=== PATIENT | female | born 1965 | race Two or more races ===

== ENCOUNTER 2017-07-01 05:33 | Emergency (ER) | payer MEDICAID ==
[~2017-07-01] VITALS: Ht 160 cm; Wt 72.6 kg
[~2017-07-01 05:33] MED LIST: ASPI-264 PO
[2017-07-01] MEDS ORDERED: methylPREDNISolone SOD SUCC 125 MG/2 ML VL IV ONE (06:00)
[2017-07-01] MEDS ORDERED: diphenhdrAMINE HCL 50 MG/1 ML VL IV ONE (06:00)
[2017-07-01] MEDS ORDERED: FAMOTIDINE (10MG/ML) 2ML VL IV ONE (06:00)
[2017-07-01] MEDS ORDERED: SODIUM CHLORIDE 0.9% 1,000 ML IV ONE (07:24)
[2017-07-01 07:38] LABS: Urine RBC None Seen /hpf (0 - 4)
[2017-07-01 07:48] LABS: Urine Bilirubin Negative (Negative); Urine Blood Negative /uL (Negative); Urine Color Yellow (Yellow); Urine Glucose Normal (Normal); Urine Ketone Negative (Negative); Urine Nitrite Negative (Negative); Urine Squamous Epithelial Cell FEW /hpf (<5); Urine Urobilinogen Normal (Negative)
[2017-07-01 08:07] LABS: Basophils # (auto) 0 uL; Basophils % (auto) 0.5 % (0.0-2.0); Eosinophils # (auto) 0.1 uL; Eosinophils % (auto) 1.5 % (0.0-7.0); Hematocrit 39.2 % (36.0-46.0); Hemoglobin 13.3 g/dL (12.2-16.2); Lymphocytes # (auto) 1.2 uL; Lymphocytes % (auto) 15.1 % (10.0-50.0); Mean Corpuscular Hemoglobin 29.5 pg (28.0-32.0); Mean Corpuscular Hgb Conc. 33.9 g/dL (32.0-36.0); Mean Corpuscular Volume 87.2 fL (80.0-100.0); Mean Platelet Volume 7.4 fL (6.9-10.8); Monocytes # (auto) 0.2 uL; Neutrophils # (auto) 6.3 uL; Neutrophils % (auto) 79.9 % (37.0-80.0); Nucleated Red Blood Cells % 0.1 %; Platelet Count (auto) 177 10^3/uL (140-450); Red Cell Distribution Width 13.6 % (11.8-14.3); White Blood Cell 7.8 10^3/uL (4.4-10.8)
[2017-07-01 08:36] LABS: Albumin 3.7 g/dL (3.4-5.0); BUN/Creatinine Ratio 17.2; Bilirubin, Total 0.5 mg/dL (0.2-1.0); Calcium 8.6 mg/dL (8.5-10.1); Magnesium 2.1 mg/dL (1.6-2.6); Potassium 3.5 mmol/L (3.5-5.1); Total Protein 7.8 g/dL (6.4-8.2)
[2017-07-01 09:20] VITALS: BP 126/73
== END 2017-07-01 09:56 | disposition home or self-care (01) ==
LOC: EDBD 05:33 → ER 05:39
DX: L50.0 Allergic urticaria (principal); I10 Essential (primary) hypertension; E11.9 Type 2 diabetes mellitus without complications; F17.210 Nicotine dependence, cigarettes, uncomplicated; Z79.82 Long term (current) use of aspirin; E78.5 Hyperlipidemia, unspecified; Z98.51 Tubal ligation status
CPT/HCPCS: 36415; 80053; 81001; 83735; 84443; 85025; 96361; 96374; 96375; 99284; J1200; J2930; J3490; J7030

== ENCOUNTER 2018-07-06 11:53 | Emergency (ER) | payer MEDICAID ==
[~2018-07-06] VITALS: Ht 160 cm; Wt 81.6 kg
[2018-07-06 12:04] VITALS: BP 166/67
== END 2018-07-06 16:55 ==
LOC: ER 11:53
DX: J01.90 Acute sinusitis, unspecified (principal); E11.9 Type 2 diabetes mellitus without complications; E78.5 Hyperlipidemia, unspecified; I10 Essential (primary) hypertension; F17.210 Nicotine dependence, cigarettes, uncomplicated; Z98.51 Tubal ligation status
CPT/HCPCS: 70450; 82962

== ENCOUNTER 2018-07-11 05:12 | Emergency (ER) | payer MEDICAID ==
[~2018-07-11] VITALS: Ht 160 cm; Wt 81.6 kg
[2018-07-11 05:29] VITALS: BP 165/67
[2018-07-11] MEDS ORDERED: methylPREDNISolone SOD SUCC 125 MG/2 ML VL IM ONE (07:00)
== END 2018-07-11 07:43 | disposition home or self-care (01) ==
LOC: ER 05:12
DX: R21 Rash and other nonspecific skin eruption (principal); T78.40XA Allergy, unspecified, initial encounter; E11.9 Type 2 diabetes mellitus without complications; E78.5 Hyperlipidemia, unspecified; I10 Essential (primary) hypertension; F17.210 Nicotine dependence, cigarettes, uncomplicated; Z79.82 Long term (current) use of aspirin; Z98.51 Tubal ligation status; X58.XXXA Exposure to other specified factors, initial encounter
CPT/HCPCS: 96372; 99283; J2930

== ENCOUNTER 2019-02-25 12:12 | Emergency (ER) | payer MEDICAID ==
[~2019-02-25] VITALS: Ht 160 cm; Wt 80.7 kg
[2019-02-25] MEDS ORDERED: methylPREDNISolone SOD SUCC 125 MG/2 ML VL IV ONE (12:30)
[2019-02-25] MEDS ORDERED: EPINEPHrine HCL 1 MG/1 ML AMP SC ONE (12:30)
[2019-02-25 12:59] VITALS: BP 132/79
== END 2019-02-25 13:14 | disposition home or self-care (01) ==
LOC: EDBD 12:12 → ER 12:15
DX: T78.40XA Allergy, unspecified, initial encounter (principal); E11.9 Type 2 diabetes mellitus without complications; I10 Essential (primary) hypertension; E78.00 Pure hypercholesterolemia, unspecified; F17.210 Nicotine dependence, cigarettes, uncomplicated; Z79.82 Long term (current) use of aspirin
CPT/HCPCS: 96372; 96374; 99283; J0171; J2930

== ENCOUNTER 2019-03-11 16:16 | Emergency (ER) | payer MEDICAID ==
[~2019-03-11] VITALS: Ht 160 cm; Wt 81.6 kg
[2019-03-11 16:26] VITALS: BP 140/68
[2019-03-11 16:57] LABS: Basophils # (auto) 0 uL; Basophils % (auto) 0.6 % (0.0-2.0); Eosinophils # (auto) 0.2 uL; Eosinophils % (auto) 4.3 % (0.0-7.0); Hematocrit 36.1 % (36.0-46.0); Hemoglobin 12.4 g/dL (12.2-16.2); Lymphocytes # (auto) 1.8 uL; Lymphocytes % (auto) 32.7 % (10.0-50.0); Mean Corpuscular Hgb Conc. 34.4 g/dL (32.0-36.0); Mean Corpuscular Volume 87.1 fL (80.0-100.0); Monocytes # (auto) 0.3 uL; Monocytes % (auto) 5.1 % (0.0-12.0); Neutrophils # (auto) 3.2 uL; Neutrophils % (auto) 57.3 % (37.0-80.0); Platelet Count (auto) 170 10^3/uL (140-450); Red Blood Cells 4.15 10^6/uL (4.0-5.20); Red Cell Distribution Width 13.6 % (11.8-14.3); White Blood Cell 5.5 10^3/uL (4.4-10.8)
[2019-03-11 17:14] LABS: Albumin 3.5 g/dL (3.4-5.0); Calcium 8.3 mg/dL (8.5-10.1); Potassium 3.9 mmol/L (3.5-5.1)
[2019-03-11 17:18] LABS: BUN/Creatinine Ratio 23.4; Bilirubin, Total 0.2 mg/dL (0.2-1.0); Total Protein 7.2 g/dL (6.4-8.2)
[2019-03-11] MEDS ORDERED: SODIUM CHLORIDE 0.9% 1,000 ML IV ONE (19:56)
== END 2019-03-11 20:23 | disposition left against medical advice (07) ==
LOC: ER 16:16
DX: I10 Essential (primary) hypertension (principal); F41.9 Anxiety disorder, unspecified; E11.9 Type 2 diabetes mellitus without complications; E78.5 Hyperlipidemia, unspecified; F17.210 Nicotine dependence, cigarettes, uncomplicated; Z98.51 Tubal ligation status; Z79.82 Long term (current) use of aspirin
CPT/HCPCS: 36415; 80053; 82962; 85025

== ENCOUNTER 2020-07-26 18:51 | Emergency (ER) | payer MEDICAID ==
[~2020-07-26] VITALS: Ht 160 cm; Wt 81.6 kg
[2020-07-26] MEDS ORDERED: methylPREDNISolone SOD SUCC 125 MG/2 ML VL IV ONE (19:15)
[2020-07-26 20:59] VITALS: BP 153/77
[2020-07-26 22:26] LABS: Basophils # (auto) 0.1 10 ^3/uL (0-0.2); Basophils % (auto) 0.6 % (0.0-2.0); Eosinophils # (auto) 0.3 10 ^3/uL (0-0.8); Eosinophils % (auto) 3.5 % (0.0-7.0); Hematocrit 37.7 % (36.0-46.0); Hemoglobin 13.5 g/dL (12.2-16.2); Lymphocytes # (auto) 1.1 10 ^3/uL (0.4-5.4); Lymphocytes % (auto) 12.9 % (10.0-50.0); Mean Corpuscular Hemoglobin 31.4 pg (28.0-32.0); Mean Corpuscular Hgb Conc. 35.8 g/dL (32.0-36.0); Mean Corpuscular Volume 87.5 fL (80.0-100.0); Monocytes # (auto) 0.2 10 ^3/uL (0-1.3); Monocytes % (auto) 2.3 % (0.0-12.0); Neutrophils # (auto) 6.7 10 ^3/uL (1.6-8.6); Neutrophils % (auto) 80.7 % (37.0-80.0); Nucleated Red Blood Cells % 0.1 %; Platelet Count (auto) 173 10^3/uL (140-450); Red Blood Cells 4.31 10^6/uL (4.0-5.20); Red Cell Distribution Width 14.1 % (11.8-14.3); White Blood Cell 8.4 10^3/uL (4.4-10.8)
[2020-07-26 22:53] LABS: Albumin 3.8 g/dL (3.4-5.0); Anion Gap 7 (5-15); Blood Urea Nitrogen 11 mg/dL (7-18); Calcium 8.6 mg/dL (8.5-10.1); Carbon Dioxide 24 mmol/L (21-32); Chloride 106 mmol/L (98-107); Glucose 208 mg/dL (74-106); Potassium 3.9 mmol/L (3.5-5.1); Sodium 137 mmol/L (136-145)
[2020-07-26 23:13] LABS: Alanine Aminotransferase 27 U/L (13-56); Alkaline Phosphatase 83 U/L (45-117); Aspartate Aminotransferase 18 U/L (15-37); BUN/Creatinine Ratio 16.4; Bilirubin, Total 0.4 mg/dL (0.2-1.0); CRP High Sensitivity 0.92 mg/dL (< 0.3); GFR African American 117 mL/min; GFR Non-African American 97 mL/min; Total Protein 8.3 g/dL (6.4-8.2)
== END 2020-07-27 00:20 | disposition home or self-care (01) ==
LOC: ER 18:51
DX: R06.02 Shortness of breath (principal); E11.9 Type 2 diabetes mellitus without complications; I10 Essential (primary) hypertension; Z98.51 Tubal ligation status; Z20.822 Contact with and (suspected) exposure to COVID-19
CPT/HCPCS: 36415; 71045; 80053; 82728; 84484; 85025; 85379; 86141; 87426; 93005; 96374; 99285; J2930; J7030; U0003

== ENCOUNTER 2021-10-15 20:24 | Emergency (ER) | payer MEDICAID ==
[~2021-10-15] VITALS: Ht 162.6 cm; Wt 79.4 kg
[~2021-10-15 20:24] MED LIST changes: -ASPI-264 PO; +ASPI325T33 PO
[2021-10-15 20:25] VITALS: BP 120/67
[2021-10-15] MEDS ORDERED: KETOROLAC TROMETH 60MG/2ML VIAL IM ONE (21:00)
[2021-10-15] MEDS ORDERED: diazePAM 5 MG TAB PO ONE (21:15)
[2021-10-16] MEDS ORDERED: DIAZ5TAB PO ×2 (00:07→00:14)
[2021-10-16] MEDS ORDERED: LIDO5CRE14 EX (00:07)
== END 2021-10-16 00:21 | disposition home or self-care (01) ==
LOC: ER 20:25
DX: M54.42 Lumbago with sciatica, left side (principal); I10 Essential (primary) hypertension; E11.9 Type 2 diabetes mellitus without complications; E78.5 Hyperlipidemia, unspecified; Z79.82 Long term (current) use of aspirin; Z79.899 Other long term (current) drug therapy
CPT/HCPCS: 96372; 99283; J1885

== ENCOUNTER 2021-12-01 20:18 | Emergency (ER) | payer MEDICAID ==
[~2021-12-01] VITALS: Ht 160 cm; Wt 74.4 kg
[~2021-12-01 20:18] MED LIST changes: +DIAZ5TAB PO; +LIDO5CRE14 EX
[2021-12-01 22:01] LABS: Basophils # (auto) 0.1 10 ^3/uL (0-0.2); Basophils % (auto) 0.9 % (0.0-2.0); Eosinophils # (auto) 0.6 10 ^3/uL (0-0.8); Eosinophils % (auto) 6.4 % (0.0-7.0); Hematocrit 35.8 % (36.0-46.0); Hemoglobin 12.6 g/dL (12.2-16.2); Lymphocytes # (auto) 2.6 10 ^3/uL (0.4-5.4); Lymphocytes % (auto) 29.5 % (10.0-50.0); Mean Corpuscular Hemoglobin 30.6 pg (28.0-32.0); Mean Corpuscular Hgb Conc. 35.2 g/dL (32.0-36.0); Mean Corpuscular Volume 86.9 fL (80.0-100.0); Monocytes # (auto) 0.4 10 ^3/uL (0-1.3); Monocytes % (auto) 4.8 % (0.0-12.0); Neutrophils # (auto) 5.1 10 ^3/uL (1.6-8.6); Neutrophils % (auto) 58.4 % (37.0-80.0); Red Blood Cells 4.12 10^6/uL (4.0-5.20); Red Cell Distribution Width 13.5 % (11.8-14.3); White Blood Cell 8.8 10^3/uL (4.4-10.8)
[2021-12-01 22:21] LABS: Albumin 3.5 g/dL (3.4-5.0); BUN/Creatinine Ratio 9.8; Magnesium 1.9 mg/dL (1.6-2.6); Potassium 3.9 mmol/L (3.5-5.1)
[2021-12-01 22:24] LABS: Bilirubin, Total 0.3 mg/dL (0.2-1.0); Total Protein 7.5 g/dL (6.4-8.2)
[2021-12-01] MEDS ORDERED: HYDROcodone-ACET 10/325MG TAB PO ONE (23:45)
[2021-12-02 04:01] VITALS: BP 116/62
[2021-12-02] MEDS ORDERED: TRAM50TA2 PO (04:08)
== END 2021-12-02 04:47 | disposition home or self-care (01) ==
LOC: ER 20:25
DX: S43.402A Unspecified sprain of left shoulder joint, initial encounter (principal); M47.819 Spondylosis without myelopathy or radiculopathy, site unspecified; I10 Essential (primary) hypertension; E11.9 Type 2 diabetes mellitus without complications; E78.5 Hyperlipidemia, unspecified; Z98.51 Tubal ligation status; X58.XXXA Exposure to other specified factors, initial encounter; Y93.89 Activity, other specified; Y92.9 Unspecified place or not applicable; Y99.9 Unspecified external cause status
CPT/HCPCS: 36415; 71045; 72125; 80053; 83735; 83880; 84443; 84484; 85025; 93005

== ENCOUNTER 2022-04-28 17:28 | Emergency (ER) | payer MEDICAID ==
[~2022-04-28] VITALS: Ht 167.6 cm; Wt 80.1 kg
[~2022-04-28 17:28] MED LIST changes: +TRAM50TA2 PO
[2022-04-28 17:48] VITALS: BP 143/83
[2022-04-28] MEDS ORDERED: KETOROLAC TROMETH 60MG/2ML VIAL IM ONE (20:00)
[2022-04-28] MEDS ORDERED: NAP500T PO (20:02)
[2022-04-28] MEDS ORDERED: CYCL-837 PO (20:02)
== END 2022-04-28 20:27 | disposition home or self-care (01) ==
LOC: ER 17:28
DX: S16.1XXA Strain of muscle, fascia and tendon at neck level, initial encounter (principal); G89.29 Other chronic pain; M25.512 Pain in left shoulder; M25.511 Pain in right shoulder; E11.9 Type 2 diabetes mellitus without complications; I10 Essential (primary) hypertension; E78.5 Hyperlipidemia, unspecified; Z98.51 Tubal ligation status; X58.XXXA Exposure to other specified factors, initial encounter; Y93.89 Activity, other specified; Y92.89 Other specified places as the place of occurrence of the external cause; Y99.8 Other external cause status
CPT/HCPCS: 73030; 96372; 99283; J1885

== ENCOUNTER 2022-11-22 21:37 | Emergency (ER) | payer MEDICAID ==
[~2022-11-22] VITALS: Ht 160 cm; Wt 79.7 kg
[~2022-11-22 21:37] MED LIST changes: +CYCL-837 PO; +NAP500T PO
[2022-11-22] MEDS ORDERED: KETOROLAC TROMETH 30 MG/ML 1ML VIAL IM ONE (23:15)
[2022-11-22] MEDS ORDERED: methylPREDNISolone SOD SUCC 125 MG/2 ML VL IM ONE (23:15)
[2022-11-22] MEDS ORDERED: CYCL-837 PO (23:21)
[2022-11-22 23:42] VITALS: BP 146/80
== END 2022-11-22 23:54 | disposition home or self-care (01) ==
LOC: ER 21:37
DX: S16.1XXA Strain of muscle, fascia and tendon at neck level, initial encounter (principal); G44.209 Tension-type headache, unspecified, not intractable; M43.6 Torticollis; E11.9 Type 2 diabetes mellitus without complications; E78.5 Hyperlipidemia, unspecified; I10 Essential (primary) hypertension; X50.9XXA Other and unspecified overexertion or strenuous movements or postures, initial encounter; Y93.E5 Activity, floor mopping and cleaning; Y92.89 Other specified places as the place of occurrence of the external cause; Y99.8 Other external cause status
CPT/HCPCS: 96372; 99284; J1885; J2930

== ENCOUNTER 2023-01-23 10:22 | Emergency (ER) | payer MEDICAID ==
[~2023-01-23] VITALS: Ht 165.1 cm; Wt 81.3 kg
[~2023-01-23 10:22] MED LIST changes: +ASPI1TAB38 PO; -ASPI325T33 PO; +DIAZ-681 PO; -DIAZ5TAB PO
[2023-01-23] MEDS ORDERED: MORPHINE SULFATE 4 MG/ML SYR/VIAL IV ONE (11:15)
[2023-01-23] MEDS ORDERED: ONDANSETRON HCL 4 MG/2 ML VIAL IV ONE (11:15)
[2023-01-23 11:16] LABS: Basophils # (auto) 0 10 ^3/uL (0-0.2); Basophils % (auto) 0.5 % (0.0-2.0); Eosinophils # (auto) 0.1 10 ^3/uL (0-0.8); Hemoglobin 10.4 g/dL (12.2-16.2); Lymphocytes # (auto) 1.3 10 ^3/uL (0.4-5.4); Lymphocytes % (auto) 14.9 % (10.0-50.0); Mean Corpuscular Hemoglobin 29.4 pg (28.0-32.0); Mean Corpuscular Hgb Conc. 33.4 g/dL (32.0-36.0); Mean Corpuscular Volume 87.9 fL (80.0-100.0); Monocytes # (auto) 0.5 10 ^3/uL (0-1.3); Monocytes % (auto) 6.3 % (0.0-12.0); Neutrophils # (auto) 6.7 10 ^3/uL (1.6-8.6); Neutrophils % (auto) 77.3 % (37.0-80.0); Red Blood Cells 3.53 10^6/uL (4.0-5.20); White Blood Cell 8.7 10^3/uL (4.4-10.8)
[2023-01-23 11:34] LABS: Albumin 3.1 g/dL (3.4-5.0); Calcium 8.7 mg/dL (8.5-10.1); Potassium 4.5 mmol/L (3.5-5.1)
[2023-01-23 11:38] LABS: BUN/Creatinine Ratio 17.4 (10.0-20.0); Bilirubin, Total 0.6 mg/dL (0.2-1.0); Total Protein 7.3 g/dL (6.4-8.2)
[2023-01-23 13:15] VITALS: BP 141/70
== END 2023-01-23 13:35 | disposition home or self-care (01) ==
LOC: ER 10:22 → EDBD 10:22 → EDUNIT# 10:22 → ER 13:24
DX: R51.9 Headache, unspecified (principal); F41.9 Anxiety disorder, unspecified; M25.561 Pain in right knee; R11.2 Nausea with vomiting, unspecified; I10 Essential (primary) hypertension; E11.9 Type 2 diabetes mellitus without complications; E78.5 Hyperlipidemia, unspecified; J45.909 Unspecified asthma, uncomplicated; Z98.890 Other specified postprocedural states; Z86.73 Personal history of transient ischemic attack (TIA), and cerebral infarction without residual deficits; Z79.82 Long term (current) use of aspirin; Z79.899 Other long term (current) drug therapy
CPT/HCPCS: 36415; 70450; 80053; 85025; 93005; 93971; 96374; 96375; 99285; J2270; J2405

== ENCOUNTER 2025-01-21 12:38 | Emergency (ER) | payer OTHER, MEDICAID ==
[~2025-01-21] VITALS: Ht 160 cm; Wt 77.4 kg
--- NOTE | 2025-01-21 14:38 | ED.PDOC ---
Lizeth. trauma (HPI) HPI Comments A 60 year-old female presents to the ED via wheelchair with a chief complaint of right knee and shoulder pain S/P fall hours ago. Patient reports multiple surgeries to both knees over the past 10 years. Patient reports watering her garden when she fell. Patient has been experiencing pain since with no alleviating factors. Patient has no further complaints at this time and otherwise denies further associated symptoms of fever, chills, LOC, N/V, migraine, dizziness, or chest pain. Chief Complaint: Fall Injury Time Seen by MD: 13:39 Primary Care Provider: KODI Reviewed notes: Medications, Allergies Allergies: Coded Allergies: NO KNOWN ALLERGIES (Unverified , 06/05/13) Home Meds Active Scripts Cyclobenzaprine Hcl (Cyclobenzaprine Hcl) 5 Mg Tab, 1 TAB PO TID PRN, #30 TAB Prov:JO KRUEGER 11/22/22 Cyclobenzaprine Hcl (Cyclobenzaprine Hcl) 5 Mg Tab, 1 TAB PO QPM, #14 TAB 0 Refills Prov:MARY FORTUNE 04/28/22 Naproxen (NAPROSYN TABLET) 500 Mg Tb, 1 TAB PO BID PRN, #30 TAB 0 Refills Prov:MARY FORTUNE 04/28/22 Tramadol Hcl (Tramadol Hcl) 50 Mg Tab, 50 MG PO Q6HP PRN, #20 MG 0 Refills Prov:DALJIT SPEARS MD 12/02/21 Diazepam (Valium) 5 Mg Tab, 5 MG PO TIDPRN PRN for 14 Days, #20 TAB 0 Refills Prov:CLAUDIA GARRETT MD 10/16/21 Lidocaine (Anorectal) (Lidocaine 5%) 5 % Cre, 5 % EX BID, #20 CRE Prov:CLAUDIA GARRETT MD 10/16/21 Reported Medications Aspirin (Aspirin) 325 Mg Tab, 325 MG PO DAILY, TAB 06/07/13 Information Source: Patient Mode of Arrival: Wheelchair Severity: Moderate Timing: Hours Duration: Since onset Location: (R) Arm, (R) Elbow, (R) Knee, (R) Shoulder Associated signs and symtoms: Other (Right sided pain ) Past Medical History PAST MEDICAL HISTORY: Asthma, CVA, DM, High Lipids, HTN 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 Family History Family History: Unknown, Family hx of heart liane Social History Smoker: Non-Smoker Alcohol: Denies ETOH Use Drugs: Denies Drug Use Lives In: Home Constitutional: denies: chills, diaphoresis, fatigue, fever, malaise, sweats, weakness, others EENTM: denies: blurred vision, double vision, ear bleeding, ear discharge, ear drainage, ear pain, ear ringing, eye pain, eye redness, hearing loss, mouth pain, mouth swelling, nasal discharge, nose bleeding, nose congestion, nose pain, photophobia, tearing, throat pain, throat swelling, voice changes, others Respiratory: denies: cough, hemoptysis, orthopnea, SOB at rest, shortness of breath, SOB with excertion, stridor, wheezing, others Cardiovascular: denies: chest pain, dizzy spells, diaphoresis, Dyspnea on exertion, edema, irregular heart beat, left arm pain, lightheadedness, palpitations, PND, syncope, others Gastrointestinal: denies: abdomen distended, abdominal pain, blood streaked bowels, constipated, diarrhea, dysphagia, difficulty swallowing, hematemesis, melena, nausea, poor appetite, poor fluid intake, rectal bleeding, rectal pain, vomiting, others Genitourinary: denies: abnormal vagina bleeding, burning, dyspareunia, dysuria, flank pain, frequency, hematuria, incontinence, pain, , vagina discharge, urgency, others Neurological: denies: dizziness, fainting, headache, left sided numbness, left sided weakness, numbness, paresthesia, pre-existing deficit, right sided numbness, right sided weakness, seizure, speech problems, tingling, tremors, weakness, others Musculoskeletal: reports: others (RIGHT ARM PAIN, RIGHT SHOULDER PAIN, RIGHT KNEE PAIN ); denies: back pain, gout, joint pain, joint swelling, muscle pain, muscle stiffness, neck pain Integumetry: denies: bruises, change in color, change in hair/nails, dryness, laceration, lesions, lumps, rash, wounds, others Allergic/Immunocompromised: denies: Difficulty Healing, Frequent Infections, Hives, Itching, others Hematologic/Lymphatic: denies: anemia, blood clots, easy bleeding, easy bruising, swollen glands, others Endocrine: denies: excessive hunger, excessive sweating, excessive thirst, excessive urination, flushing, intolerance to cold, intolerance to heat, unexplained weight gain, unexplained weight loss, others Psychiatric: denies: anxiety, bipolar disorder, depression, hopeless, panic disorder, schizophrenia, sleepless, suicidal, others All Other Systems: Reviewed and Negative Physical Exam General Appearance: Moderate Distress HEENT: Normal ENT Inspection, PERRL/EOMI Neck: Full Range of Motion, Non-Tender, Normal, Normal Inspection Respiratory: Chest Non-Tender, Lungs Clear, No Accessory Muscle Use, No Respiratory Distress, Normal Breath Sounds Cardiovascular: No Edema, No JVD, No Murmur, No Gallop, Normal Peripheral Pulses, Regular Rate/Rhythm Breast Exam: Deferred Gastrointestinal: No Organomegaly, Non Tender, No Pulsatile Mass, Normal Bowel Sounds, Soft Genitalia: Deferred Pelvic: Deferred Rectal: Deferred Extremities: Decreased range of motion, No calf tenderness, Normal capillary refill, No pedal edema, Swelling, Tender Musculoskeletal : Location: Right Extremity Location: Knee, Shoulder Apperance: Swelling, Limited ROM, Tenderness: Moderate (Patient post surgery to the right shoulder and right knee) Neurologic: Alert, 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 Was a procedure done?: No Differential Diagnosis Multiple Trauma: Fractures, Contusion, Hematoma Neck Injury: N/A X-Ray, Labs, Meds, VS Vital Signs Date Time Temp Pulse Resp B/P (MAP) Pulse Ox O2 Delivery O2 Flow Rate FiO2 01/21/25 15:44 97.5 69 17 167/62 (97) 98 97.5 01/21/25 12:55 98.3 65 18 152/78 (102) [address] [address] Ph: [phone] DIAGNOSTIC IMAGING Diagnostic Imaging Report : [id number] Signed PATIENT: MATTIE MORSE ACCT: [id number] UNIT: [id number] : 1965 LOC: ER ROOM / BED: / AGE / SEX: 60 / F ADM STATUS: REG ER SERVICE 1350 ORDERING PHYSICIAN: SOFÍA OCASIO MD PROCEDURE(s): RKN3 - R KNEE 3V XRAY REASON: Acute fall ORDER NUMBER(s): [id number], ACCESSION NUMBER(s): [id number] CLINICAL INDICATION: Acute fall TECHNIQUE: 3 radiographic views of the right knee were obtained. Comparison: None FINDINGS/IMPRESSION: Right total knee arthroplasty in place. Bony alignment and prosthetic alignment normal No acute fractures. No findings to suggest joint effusion. [place] [address] Ph: [phone] DIAGNOSTIC IMAGING Diagnostic Imaging Report : [id number] Signed PATIENT: MATTIE MORSE ACCT: [id number] UNIT: [id number] : 1965 LOC: ER ROOM / BED: / AGE / SEX: 60 / F ADM STATUS: REG ER SERVICE 1350 ORDERING PHYSICIAN: SOFÍA OCASIO MD PROCEDURE(s): RSHD2 - R SHOULDER 2+ VIEW XRAY REASON: Acute fall ORDER NUMBER(s): [id number], ACCESSION NUMBER(s): [id number] CLINICAL INDICATION: Acute fall TECHNIQUE: 3 radiographic views of the right shoulder were obtained. Comparison: R SHOULDER COMPLETE XRAY on DOS: 04/28/22, L SHOULDER COMPLETE XRAY on DOS: 04/28/22 FINDINGS/IMPRESSION: There are no fractures or dislocations. Narrowing of the acromial humeral joint space is apparent. Consider MRI if rotator cuff tear is of clinical concern. X-Ray, Labs, Meds, VS Comment Course in the emergency department patient has had an x-ray to the right knee which is normal except for the soft tissue swelling and x-ray to the right shoulder who we which is probably old issue with the rotator cuff but she had surgery before Patient will be discharged home with a an Igor wrap to the knee and a sling to the shoulder Images Reviewed?: Images reviewed and evaluated by me Time of 1ST Reevaluation: 14:38 Reevaluation 1ST: Unchanged Time of 2ND Reevaluation: 16:58 Reevaluation 2ND: Improved Consultation: PCP, Other (Orthopedist) Patient Education/Counseling: Diagnosis, Treatment, Prognosis, Need For Follow Up Family Education/Counseling: Diagnosis, Treatment, Prognosis, Need For Follow Up, No Family Present Departure 1 Departure Time of Disposition: 16:59 Impression: Primary Impression: Fall at home Additional Impressions: Chronic left shoulder pain Contusion of right knee Disposition: HOME / SELF CARE / HOMELESS Condition: Stable Additional Instructions: Local heat and follow up with your PCP e-Prescriptions Acetaminophen (Acetaminophen Extra Stren) 500 Mg Tab 500 MG PO TID for 10 Days, #30 TAB Prov: SOFÍA OCASIO MD 01/21/25 Naproxen (Naproxen) 375 Mg Tab 375 MG PO TID for 10 Days, #30 TAB Prov: SOFÍA OCASIO MD 01/21/25 Discharged With: Self Critical Care Note Critical Care Time?: No Stability Stability form required: No Heart Score Heart Score: Heart Score Response (Comments) Value History N/A 0 EKG N/A 0 Age 45-64 1 Risk Factors 1 or 2 risk factors 1 Troponin N/A 0 Total 2 I personally scribed for SOFÍA OCASIO MD ([email or web address]) on 01/21/25 at 14:38. Electronically submitted by Julianna Joaquin ([email or web address]). I personally scribed for SOFÍA OCASIO MD ([email or web address]) on 01/21/25 at 15:13. Electronically submitted by Julianna Joaquin ([email or web address]). I personally scribed for SOFÍA OCASIO MD ([email or web address]) on 01/21/25 at 15:36. Electronically submitted by Julianna Joaquin ([email or web address]). SOFÍA OCASIO MD Jan 21, 2025 14:38
--- NOTE | 2025-01-21 15:08 | DVH ---
CLINICAL INDICATION: Acute fall TECHNIQUE: 3 radiographic views of the right knee were obtained. Comparison: None FINDINGS/IMPRESSION: Right total knee arthroplasty in place. Bony alignment and prosthetic alignment normal No acute fractures. No findings to suggest joint effusion.
--- NOTE | 2025-01-21 15:22 | DVH ---
CLINICAL INDICATION: Acute fall TECHNIQUE: 3 radiographic views of the right shoulder were obtained. Comparison: R SHOULDER COMPLETE XRAY on DOS: 04/28/22, L SHOULDER COMPLETE XRAY on DOS: 04/28/22 FINDINGS/IMPRESSION: There are no fractures or dislocations. Narrowing of the acromial humeral joint space is apparent. Consider MRI if rotator cuff tear is of cl inical concern.
[2025-01-21] MEDS ORDERED: ACET-6 PO (17:01)
[2025-01-21] MEDS ORDERED: NAPR-957 PO (17:01)
[2025-01-21] MEDS: KETOROLAC TROMETH 60MG/2ML VIAL IM ONE (18:02)
[2025-01-21 18:45] VITALS: BP 136/63; PULSE 64; RESP 20; TEMP 98.1; O2SAT 99
== END 2025-01-21 18:48 | disposition home or self-care (01) ==
LOC: ER 12:38
DX: S80.01XA Contusion of right knee, initial encounter (principal); G89.29 Other chronic pain; M25.511 Pain in right shoulder; I10 Essential (primary) hypertension; E11.9 Type 2 diabetes mellitus without complications; J45.909 Unspecified asthma, uncomplicated; E78.5 Hyperlipidemia, unspecified; Z79.82 Long term (current) use of aspirin; Z86.73 Personal history of transient ischemic attack (TIA), and cerebral infarction without residual deficits; Z96.651 Presence of right artificial knee joint; Z98.51 Tubal ligation status; W18.39XA Other fall on same level, initial encounter; Y93.89 Activity, other specified; Y92.098 Other place in other non-institutional residence as the place of occurrence of the external cause; Y99.8 Other external cause status
CPT/HCPCS: 73030; 73562; 96372; 99284; J1885

== ENCOUNTER 2025-04-03 13:27 | Inpatient (IN) | payer MEDICARE, MEDICAID ==
[~2025-04-03] VITALS: Ht 160 cm; Wt 75.0 kg
[~2025-04-03 13:27] MED LIST changes: +ACET-6 PO; +NAPR-957 PO
--- NOTE | 2025-04-03 14:10 | ED.PDOC ---
History of Present Illness HPI Comments 60 year old female presents to the ED with a chief complaint of headache onset 3 days. Patient states she has been experiencing headache, generalized weakness, dizziness, fatigue, nausea, vomiting, changes in vision, chest pain for the past 3 days as well as elevated BP and elevated BS, intermittent shortness of breath. Patient states headache worsened this morning, came to ED. PMHx asthma, DM, HLD, HTN, CVA. Denies fever, chills, cough, cold, congestion, nausea, vomiting, dysuria, hematuria, hematemesis, urinary frequency, dizziness. No other symptoms or modifying factors present at this time. Chief Complaint: Headache Time Seen by MD: 13:50 Primary Care Provider: KODI Reviewed Notes: Medications, Allergies Allergies: Coded Allergies: NO KNOWN ALLERGIES (Unverified , 06/05/13) Home Meds Active Scripts Acetaminophen (Acetaminophen Extra Stren) 500 Mg Tab, 500 MG PO TID for 10 Days, #30 TAB Prov:SOFÍA OCASIO MD 01/21/25 Naproxen (Naproxen) 375 Mg Tab, 375 MG PO TID for 10 Days, #30 TAB Prov:SOFÍA OCASIO MD 01/21/25 Cyclobenzaprine Hcl (Cyclobenzaprine Hcl) 5 Mg Tab, 1 TAB PO TID PRN, #30 TAB Prov:JO KRUEGER 11/22/22 Cyclobenzaprine Hcl (Cyclobenzaprine Hcl) 5 Mg Tab, 1 TAB PO QPM, #14 TAB 0 Refills Prov:MARY FORTUNE 04/28/22 Naproxen (NAPROSYN TABLET) 500 Mg Tb, 1 TAB PO BID PRN, #30 TAB 0 Refills Prov:MARY FORTUNE 04/28/22 Tramadol Hcl (Tramadol Hcl) 50 Mg Tab, 50 MG PO Q6HP PRN, #20 MG 0 Refills Prov:DALJIT SPEARS MD 12/02/21 Diazepam (Valium) 5 Mg Tab, 5 MG PO TIDPRN PRN for 14 Days, #20 TAB 0 Refills Prov:CLAUDIA GARRETT MD 10/16/21 Lidocaine (Anorectal) (Lidocaine 5%) 5 % Cre, 5 % EX BID, #20 CRE Prov:CLAUDIA GARRETT MD 10/16/21 Reported Medications Aspirin (Aspirin) 325 Mg Tab, 325 MG PO DAILY, TAB 06/07/13 Information Source: Patient Mode of Arrival: Ambulatory Severity: Moderate Timing: Days Duration: Since onset Prehospital treatment: None Medication Refill: Ran out of Medication, For: Hypertension Past Medical History PAST MEDICAL HISTORY: Asthma, CVA, DM, High Lipids, HTN 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 Family History Family History: Unknown, Family hx of heart liane Social History Smoker: Non-Smoker Alcohol: Denies ETOH Use Drugs: Denies Drug Use Lives In: Home Constitutional: reports: fatigue, weakness; denies: chills, diaphoresis, fever, malaise, sweats, others EENTM: denies: blurred vision, double vision, ear bleeding, ear discharge, ear drainage, ear pain, ear ringing, eye pain, eye redness, hearing loss, mouth pain, mouth swelling, nasal discharge, nose bleeding, nose congestion, nose le[place] n, photophobia, tearing, throat pain, throat swelling, voice changes, others Respiratory: reports: shortness of breath; denies: cough, hemoptysis, orthopnea, SOB at rest, SOB with excertion, stridor, wheezing, others Cardiovascular: reports: chest pain; denies: dizzy spells, diaphoresis, Dyspnea on exertion, edema, irregular heart beat, left arm pain, lightheadedness, palpitations, PND, syncope, others Gastrointestinal: reports: nausea, vomiting; denies: abdomen distended, abdominal pain, blood streaked bowels, constipated, diarrhea, dysphagia, difficulty swallowing, hematemesis, melena, poor appetite, poor fluid intake, rectal bleeding, rectal pain, others Genitourinary: denies: abnormal vagina bleeding, burning, dyspareunia, dysuria, flank pain, frequency, hematuria, incontinence, pain, , vagina discharge, urgency, others Neurological: reports: dizziness, headache, weakness; denies: fainting, left sided numbness, left sided weakness, numbness, paresthesia, pre-existing deficit, right sided numbness, right sided weakness, seizure, speech problems, tingling, tremors, others Musculoskeletal: denies: back pain, gout, joint pain, joint swelling, muscle pain, muscle stiffness, neck pain, others Integumetry: denies: bruises, change in color, change in hair/nails, dryness, laceration, lesions, lumps, rash, wounds, others Allergic/Immunocompromised: denies: Difficulty Healing, Frequent Infections, Hives, Itching, others Hematologic/Lymphatic: denies: anemia, blood clots, easy bleeding, easy bruising, swollen glands, others Endocrine: denies: excessive hunger, excessive sweating, excessive thirst, excessive urination, flushing, intolerance to cold, intolerance to heat, unexplained weight gain, unexplained weight loss, others Psychiatric: denies: anxiety, bipolar disorder, depression, hopeless, panic disorder, schizophrenia, sleepless, suicidal, others All Other Systems: Reviewed and Negative Physical Exam General Appearance: No Apparent Distress, Normal HEENT: Normal ENT Inspection, Pharynx Normal, TMs Normal Neck: Full Range of Motion, Non-Tender, Normal, Normal Inspection Respiratory: Chest Non-Tender, Lungs Clear, No Accessory Muscle Use, No Respiratory Distress, Normal Breath Sounds Cardiovascular: No Edema, No JVD, No Murmur, No Gallop, Normal Peripheral Pulses, Regular Rate/Rhythm Breast Exam: Deferred Gastrointestinal: No Organomegaly, Non Tender, No Pulsatile Mass, Normal Bowel Sounds, Soft Genitalia: Deferred Pelvic: Deferred Rectal: Deferred Extremities: No calf tenderness, Normal capillary refill, Normal inspection, Normal range of motion, Non-tender, No pedal edema Musculoskeletal : Apperance: Normal Neurologic: Alert, 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 Was a procedure done?: No Differential Dx Considerations may include: Hypertensive urgency, ACS, viral syndrome, CVA, electrolyte abnormality X-Ray, Labs, Meds, VS Vital Signs Date Time Temp Pulse Resp B/P (MAP) Pulse Ox O2 Delivery O2 Flow Rate FiO2 04/03/25 13:29 97.9 82 19 163/72 96 97.9 Lab Test 04/03/25 16:07 04/03/25 14:40 Range/Units Troponin I High Sensitivity 5 3 L </=34 ng/L White Blood Count 6.6 4.4-10.8 10^3/uL Red Blood Count 4.15 4.0-5.20 10^6/uL Hemoglobin 12.2 12.2-16.2 g/dL Hematocrit 35.7 L 36.0-46.0 % Mean Corpuscular Volume 86.0 80.0-100.0 fL Mean Corpuscular Hemoglobin 29.5 28.0-32.0 pg Mean Corpuscular Hemoglobin Concent 34.3 32.0-36.0 g/dL Red Cell Distribution Width 13.7 11.8-14.3 % Platelet Count 194 140-450 10^3/uL Mean Platelet Volume 7.5 6.9-10.8 fL Neutrophils (%) (Auto) 57.2 37.0-80.0 % Lymphocytes (%) (Auto) 35.0 10.0-50.0 % Monocytes (%) (Auto) 5.2 0.0-12.0 % Eosinophils (%) (Auto) 2.0 0.0-7.0 % Basophils (%) (Auto) 0.6 0.0-2.0 % Neutrophils # (Auto) 3.8 1.6-8.6 10 ^3/uL Lymphocytes # (Auto) 2.3 0.4-5.4 10 ^3/uL Monocytes # (Auto) 0.3 0-1.3 10 ^3/uL Eosinophils # (Auto) 0.1 0-0.8 10 ^3/uL Basophils # (Auto) 0 0-0.2 10 ^3/uL Nucleated Red Blood Cells 0.1 % Sodium Level 141 136-145 mmol/L Potassium Level 4.1 3.5-5.1 mmol/L Chloride Level 105 98-107 mmol/L Carbon Dioxide Level 27 20-31 mmol/L Anion Gap 9 5-15 Blood Urea Nitrogen 13 9-23 mg/dL Creatinine 0.65 0.550-1.02 mg/dL Glomerular Filtration Rate Calc 100 >90 mL/min BUN/Creatinine Ratio 20.0 10.0-20.0 Serum Glucose 174 H 74-106 mg/dL Calcium Level 9.1 8.7-10.4 mg/dL Time of 1ST Reevaluation: 14:20 Reevaluation 1ST: Unchanged Patient Education/Counseling: Diagnosis, Treatment, Prognosis Family Education/Counseling: No Family Present SEPSIS Sepsis Screen Date sepsis recognized/suspect: Apr 03, 2025 Time Sepsis recognized/suspect: 1329 Recent Procedure: No On Antibiotic Therapy: No Respiratory Rate >20: No Heart Rate >90: No Temp<36 C (96.8 F) or >38.3 C: No SBP <90 or MAP <65 mmHG: No New Acute Mental Status Change: No Is the patient on CPAP, BIPAP,: No Physician Orders Urinalysis (04/03/25 14:09) Head Without Contrast (04/03/25 14:09) Electrocardigram (04/03/25 14:09) Troponin-I Hs (04/03/25 17:09) Electrocardigram (04/03/25 15:09) Electrocardigram (04/03/25 17:09) Chest Portable (04/03/25 16:01) Vital Signs Date Time Temp Pulse Resp B/P (MAP) Pulse Ox O2 Delivery O2 Flow Rate FiO2 04/03/25 13:29 97.9 82 19 163/72 96 97.9 Laboratory Tests Test 04/03/25 14:40 White Blood Count 6.6 10^3/uL (4.4-10.8) Departure 1 Departure Time of Disposition: 16:54 (Patient presented with hypertension and symptoms concerning for hypertensive emergency. Patient is receiving iv blood pressure medications requiring intensive monitoring. Data: 1. I ordered and reviewed the result of at least 3 labs including a CBC, BMP, and Urinalysis. 2. I independently interpreted the following tests: CT Brain: Which appears benign. EKG which is Normal Sinus RhythmRisk:This patient has a high risk of morbidity due to further diagnostic testing or treatment and may suffer from an acute cardiac disorder. Workup reveals hypertensive emergency and patient should be admitted for further workup. and possible expert consultation. ) Impression: Primary Impression: Hypertensive urgency Additional Impressions: Generalized weakness Near syncope Disposition: ADMITTED INPATIENT Admit to: Tele Condition: Guarded Critical Care Note Critical Care Time?: Yes Critical care comment: Hypertensive urgency Authorized and Performed by: Dewayne Betancourt MD Total critical care time: Approximately 39 minutes Due to a high probability of clinically significant, life threatening deterioration, the patient required my highest level of preparedness to intervene emergently and I personally spent this critical care time directly and personally managing the patient. This critical care time included obtaining a history; examining the patient; pulse oximetry; ordering and review of studies; arranging urgent treatment with development of a management plan; evaluation of patient's response to treatment; frequent reassessment; and, discussions with other providers. This critical care time was performed to assess and manage the high probability of imminent, life-threatening deterioration that could result in multi-organ failure. It was exclusive of separately billable procedures and treating other patients and teaching time. Please see my other sections and the rest of the note for further information on patient assessment and treatment. Stability Stability form required: No I personally scribed for DEWAYNE BETANCOURT MD ([email or web address]) on 04/03/25 at 14:10. Electronically submitted by Rosalba Wheeler ([email or web address]). I personally scribed for DEWAYNE BETANCOURT MD ([email or web address]) on 04/03/25 at 14:17. Electronically submitted by Rosalba Wheeler ([email or web address]). DEWAYNE BETANCOURT MD Apr 03, 2025 14:10
--- NOTE | 2025-04-03 14:54 | DVH ---
COMPUTERIZED TOMOGRAPHY OF THE HEAD WITHOUT CONTRAST REASON FOR STUDY: headache, htn COMPARISON: CT HEAD WITHOUT CONTRAST on DOS: 01/23/23, CERVICAL WITHOUT CONTRAST on DOS: 12/01/21 TECHNIQUE: Helical tomographic scans were obtained through the brain. 2-D coronal and sagittal refor matted images are provided. Radiation optimization: All CT scans at this facility use at least one of these dose optimization techniques: Automated exposure control mA and/or kV adjustment per patient s ize (includes targeted exams where dose is matched to clinical indication) or iterative reconstructio n. RADIATION DOSE: CTDI: 53 mGy DLP: 934 mGy-cm FINDINGS: No suspicious intracranial hyperdensity to suggest acute blood. There is no mass effect n or midline shift. There is mild generalized volume loss with compensatory enlargement of the CSF spac es. There is no hydrocephalus. The suprasellar cistern is intact. There are scattered periventricular and deep white matter hypodensities that are most consistent with chronic microangiopathic changes. The calvarium is intact. The visualized mastoid air cells and paranasal sinuses are clear. IMPRESSION: No acute intracranial abnormality. Mild generalized volume loss with chronic small vessel ischemic change.
[2025-04-03 14:57] LABS: Hematocrit 35.7 % (36.0-46.0); Hemoglobin 12.2 g/dL (12.2-16.2); Mean Corpuscular Hemoglobin 29.5 pg (28.0-32.0); Mean Corpuscular Volume 86.0 fL (80.0-100.0); Nucleated Red Blood Cells % 0.1 %
[2025-04-03 15:02] LABS: Chloride 105 mmol/L (98-107); Potassium 4.1 mmol/L (3.5-5.1); Sodium 141 mmol/L (136-145)
[2025-04-03 15:03] LABS: Anion Gap 9 (5-15); Carbon Dioxide 27 mmol/L (20-31)
[2025-04-03 15:04] LABS: Calcium 9.1 mg/dL (8.7-10.4)
[2025-04-03 15:09] LABS: BUN/Creatinine Ratio 20.0 (10.0-20.0); Blood Urea Nitrogen 13 mg/dL (9-23)
[2025-04-03 15:10] LABS: Glucose 174 mg/dL (74-106)
--- NOTE | 2025-04-03 16:53 | DVH ---
AP portable chest CLINICAL INDICATION: chest pain FINDINGS: Heart size is normal. Aorta slightly tortuous. No infiltrates or effusions. No bony thoraci c abnormalities. IMPRESSION: 1. No acute cardiopulmonary pathology
[2025-04-03 21:37] LABS: INR 0.98 (0.9-1.15); Partial Thromboplastin Time 31.9 SEC (24.5-34.5); Prothrombin Time 10.4 sec (9.3-11.8)
[2025-04-03] MEDS ORDERED: MORPHINE SULFATE INJ 2 MG/ml SYRG IV PRN (21:45)
--- NOTE | 2025-04-03 21:48 | DVHHPRES ---
History of Present Illness Resident Creating Document: SERA CONTRERAS RESIDENT History of Present Illness Ms. Davidson is a 60-year-old female with prior medical history of hypertension, type 2 diabetes mellitus, hyperlipidemia, asthma, and diabetic neuropathy, who presents to the ED with chief complaint of headache. She refers frontal headache for the last 3 days described as pulsatile, nonradiating, 10/10 intensity, associated with nausea, vomiting, blurry vision, and tinnitus. She took her blood pressure at home which showed 185/104, which prompted her to seek medical care at the ED. She denies fever, loss of consciousness, weakness, chest pain, shortness of breath, and other symptoms. On evaluation in the ED, vitals were stable, blood pressure was 163/72. Initial labs show CBC and chemical panel within normal range. Head CT shows no acute intracranial abnormality mild generalized volume loss with chronic small-vessel ischemic change. Chest x-ray showed no acute cardiopulmonary pathology. The patient was admitted for further workup and monitoring. 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 HEENT: Denies changes in vision and hearing. Respiratory: Denies shortness of breath and cough Cardiovascular: Denies chest discomfort or palpitations GI: Denies abdominal distention, abdominal pain, diarrhea : Denies dysuria and urinary frequency. Musculoskeletal: Denies symptoms Skin: Denies rash and pruritus. Neurological: Refers frontal headache Allergies: Coded Allergies: NO KNOWN ALLERGIES (Unverified , 06/05/13) Medications Current Medications Medications Dose Ordered Sig/Aric Route Start Time Stop Time Status Last Admin Dose Admin Acetaminophen 650 mg Q6HP PRN PO 04/03/25 21:45 UNV Morphine Sulfate 2 mg Q4HPRN PRN IV 04/03/25 21:45 UNV Enoxaparin Sodium 40 mg DAILY SC 04/04/25 10:00 UNV Exam Vital Signs Vital Signs Date Time Temp Pulse Resp B/P (MAP) Pulse Ox O2 Delivery O2 Flow Rate FiO2 04/03/25 13:29 97.9 82 19 163/72 96 97.9 Exam General: The patient alert and oriented in person place and time. Patient following commands HEENT: Normocephalic, atraumatic, normal reactive pupils, EOM intact, pink conjunctiva, pink moist mucous membrane Respiratory/pulmonary: Bilateral chest expansion, clear lungs bilaterally, no pain on palpation, vesicular murmurs present in almost all lung srivastava, no associated crackles or wheezes. Cardiovascular: Normal RRR, normal S1 and S2, no murmurs Abdomen: Abdomen nondistended, normal bowel sounds, soft, there is no pain to palpation in any of the abdominal quadrants, no palpable masses. Extremities: No deformities, there is no peripheral edema present at the lower extremities, pulses are present Skin: No rashes or pruritus, there is no sacral edema present at this time. Neurological: Intact cranial nerves with no focal neurologic deficits Labs/Xrays Labs Test 04/03/25 18:01 04/03/25 16:07 04/03/25 14:40 Range/Units Prothrombin Time 10.4 9.3-11.8 sec Prothrombin Time INR 0.98 0.9-1.15 Activated Partial Thromboplast Time 31.9 24.5-34.5 SEC Troponin I High Sensitivity 4 </=34 ng/L Thyroid Stimulating Hormone (TSH) 0.57 0.55-4.78 uIU/mL White Blood Count 6.6 4.4-10.8 10^3/uL Red Blood Count 4.15 4.0-5.20 10^6/uL Hemoglobin 12.2 12.2-16.2 g/dL Hematocrit 35.7 L 36.0-46.0 % Mean Corpuscular Volume 86.0 80.0-100.0 fL Mean Corpuscular Hemoglobin 29.5 28.0-32.0 pg Mean Corpuscular Hemoglobin Concent 34.3 32.0-36.0 g/dL Red Cell Distribution Width 13.7 11.8-14.3 % Platelet Count 194 140-450 10^3/uL Mean Platelet Volume 7.5 6.9-10.8 fL Neutrophils (%) (Auto) 57.2 37.0-80.0 % Lymphocytes (%) (Auto) 35.0 10.0-50.0 % Monocytes (%) (Auto) 5.2 0.0-12.0 % Eosinophils (%) (Auto) 2.0 0.0-7.0 % Basophils (%) (Auto) 0.6 0.0-2.0 % Neutrophils # (Auto) 3.8 1.6-8.6 10 ^3/uL Lymphocytes # (Auto) 2.3 0.4-5.4 10 ^3/uL Monocytes # (Auto) 0.3 0-1.3 10 ^3/uL Eosinophils # (Auto) 0.1 0-0.8 10 ^3/uL Basophils # (Auto) 0 0-0.2 10 ^3/uL Nucleated Red Blood Cells 0.1 % Sodium Level 141 136-145 mmol/L Potassium Level 4.1 3.5-5.1 mmol/L Chloride Level 105 98-107 mmol/L Carbon Dioxide Level 27 20-31 mmol/L Anion Gap 9 5-15 Blood Urea Nitrogen 13 9-23 mg/dL Creatinine 0.65 0.550-1.02 mg/dL Glomerular Filtration Rate Calc 100 >90 mL/min BUN/Creatinine Ratio 20.0 10.0-20.0 Serum Glucose 174 H 74-106 mg/dL Hemoglobin A1c 8.0 H <5.7 % A1C Calcium Level 9.1 8.7-10.4 mg/dL Vitamin B12 Level 420 211-911 pg/mL SEPSIS Sepsis Screen Date sepsis recognized/suspect: Apr 03, 2025 Time Sepsis recognized/suspect: 1329 Recent Procedure: No On Antibiotic Therapy: No Respiratory Rate >20: No Heart Rate >90: No Temp<36 C (96.8 F) or >38.3 C: No SBP <90 or MAP <65 mmHG: No New Acute Mental Status Change: No Is the patient on CPAP, BIPAP,: No Physician Orders Urinalysis (04/03/25 14:09) Head Without Contrast (04/03/25 14:09) Electrocardigram (04/03/25 14:09) Electrocardigram (04/03/25 15:09) Electrocardigram (04/03/25 17:09) Chest Portable (04/03/25 16:01) Magnesium (04/03/25 20:46) Lactic Acid W/ Reflex Order (04/03/25 20:46) Phosphorus (04/03/25 20:46) Vitamin D, 25-Hydroxy (04/03/25 20:46) Hepatic Panel (04/03/25 20:46) Admit (04/03/25 21:40) Code Status (04/03/25:40) Vital Signs .PER UNIT PROTOCOL (04/03/25 21:40) Review Orders With Adm. (04/03/25 21:40) Consistent Carb(Ccho)Diabetes (04/04/25 Breakfast) Acetaminophen Tablet (Tylenol Tablet) (04/03/25 21:45) Notify Md Of Changes From Base (04/03/25 21:40) Advance Directive (04/03/25 21:40) Echo 2d Mode Cardiac Dop (04/03/25 21:40) Basic Metabolic Panel (04/04/25 04:00) Complete Blood Count (04/04/25 04:00) Lipid Panel (04/03/25 21:40) Patient Condition (04/03/25 21:40) Allergies (04/03/25 21:40) Morphine Sulfate Injection (04/03/25 21:45) Enoxaparin Sodium (Lovenox) (04/04/25 10:00) Carotid Duplx W Color Dop (04/03/25 21:40) Stat Ekg For Chest Pain (04/03/25 21:40) Notify Md Of Changes From Base (04/03/25 21:40) Emergency Dysrhythmia Protocol (04/03/25 21:40) Rhythm Strips Once Every Shift (04/03/25 21:40) Laboratory Tests Test 04/03/25 14:40 White Blood Count 6.6 10^3/uL (4.4-10.8) Assessment/Plan Assessment/Plan Assessment and plan Intractable headache, likely due to hypertensive urgency Rule out temporal giant cell arteritis -Patient's systolic blood pressure at home was above 180 mmHg -Acetaminophen 650 mg p.o. q.6 hours PRN -Morphine 2 mg IV q.4 PRN -Losartan 25 mg p.o. daily -Monitor blood pressure -Ordered echocardiogram to evaluate end-organ damage -Ordered ESR, pending CVA, rule out -Head CT: No acute intracranial abnormality, mild generalized volume loss with chronic small-vessel ischemic change. -Carotid Doppler: No hemodynamically significant stenosis noted in the right or left carotid systems. Uncontrolled diabetes mellitus with hyperglycemia, HB A1c 8% -Mild SSI -Accu-Cheks -Consistent carbohydrate diet Hyperlipidemia -Atorvastatin 20 mg p.o. daily Diabetic neuropathy -Gabapentin 100 mg p.o. t.i.d. Asthma -Montelukast 10 mg p.o. daily Tobacco use -I have counseled the patient on the importance of complete tobacco cessation for over 12 minutes Diet: Consistent carbohydrate DVT prophylaxis: Lovenox 40 mg sc daily GI prophylaxis: Protonix 40 mg IV daily Case discussed with Dr. Meneses Goals of care discussed with the patient for over 24 minutes. FULL CODE. Plan discussed with: Patient, Other (Nurses) My Orders Orders - SERA CONTRERAS RESIDENT Procedure Category Date Status Time Magnesium LAB 04/03/25 In Process 20:46 Lactic Acid W/ Reflex LAB 04/03/25 Logged Order 20:46 Phosphorus LAB 04/03/25 In Process 20:46 Vitamin D, 25-Hydroxy LAB 04/03/25 In Process 20:46 Hepatic Panel LAB 04/03/25 In Process 20:46 Admit ADMIT 04/03/25 Transmitted 21:40 Code Status CODE 04/03/25 Transmitted 21:40 Vital Signs [facility] 04/03/25 In Process 21:40 Review Orders With [facility] 04/03/25 In Process Adm. 21:40 Consistent DIET 04/04/25 Transmitted Carb(Ccho)Diabetes Breakfast Acetaminophen Tablet PHA 04/03/25 Logged (Tylenol Tablet) 21:45 Notify Of Changes [facility] 04/03/25 In Process From Base 21:40 Advance Directive [facility] 04/03/25 In Process 21:40 Echo 2d Mode Cardiac US 04/03/25 Logged DOP 21:40 Basic Metabolic Panel LAB 04/04/25 Verified 04:00 Complete Blood Count LAB 04/04/25 Verified 04:00 Lipid Panel LAB 04/03/25 Logged 21:40 Patient Condition ORDERS 04/03/25 Transmitted 21:40 Allergies [facility] 04/03/25 In Process 21:40 Morphine Sulfate PHA 04/03/25 Logged Injection 21:45 Enoxaparin Sodium PHA 04/04/25 Logged (Lovenox) 10:00 Carotid Duplx W Color US 04/03/25 Logged DOP 21:40 Stat Ekg For Chest [facility] 04/03/25 In Process Pain 21:40 Notifric Garsia Of Changes [facility] 04/03/25 In Process From Base 21:40 Emergency Dysrhythmia [facility] 04/03/25 In Process Protocol 21:40 Rhythm Strips Once [facility] 04/03/25 In Process Every Shift 21:40 Date of Service: Apr 03, 2025 Billing Provider: BERNARD MENESES MD Common Visit Codes: [id number] INP/OBS CARE (HIGH) Secondary Visit Codes: [id number] CARE PLAN 30 MINUTES SERA CONTRERAS RESIDENT Apr 03, 2025 21:48 DEAN PAULINO RESIDENT Apr 04, 2025 04:14
[2025-04-03 21:55] LABS: Alanine Aminotransferase 25.0 U/L (7-40); Alkaline Phosphatase 91.0 U/L (46-116); Magnesium 1.6 mg/dL (1.6-2.6); Total Protein 7.2 g/dL (5.7-8.2)
[2025-04-03 21:56] LABS: Albumin 4.4 g/dL (3.2-4.8); Bilirubin, Direct 0.1 mg/dL (<0.3); Bilirubin, Total 0.4 mg/dL (0.2-1.0)
--- NOTE | 2025-04-03 22:14 | DVH ---
Carotid Duplex Clinical History: Eval carotids Comparison: None Technique: Duplex doppler evaluation of the extracranial carotid and vertebral arteries including color doppler and spectral/pulsed waveform analysis was performed. Findings: RIGHT SIDE: The peak systolic velocities are 62 cm/s in the CCA, 116 cm/s in the ICA. The ICA/CCA ratio is 1.9. The external carotid artery is patent with peak systolic velocity of 88 cm/s proximally. There is appropriate antegrade flow in the right vertebral artery. LEFT SIDE: The peak systolic velocities are 66 cm/s in the CCA, 85 cm/s in the ICA. The ICA/CCA ratio is 1.3. The external carotid artery is patent with peak systolic velocity of 67 cm/s proximally. There is appropriate antegrade flow in the left vertebral artery. IMPRESSION: 1. No hemodynamically significant stenosis noted in the right carotid system. 2. No hemodynamically significant stenosis noted in the left carotid system. Reference: Radiology 2003; 229:[id number] Normal ICA PSV is <125 cm/sec and no plaque or intimal thickening is visible sonographically addition al criteria include ICA/CCA PSV ratio <2.0 and ICA EDV <40 cm/sec <50% ICA stenosis ICA PSV is <125 cm/sec and plaque or intimal thickening is visible sonographically additional criteria include ICA/CCA PSV ratio <2.0 and ICA EDV <40 cm/sec 50-69% ICA stenosis ICA PSV is 125-230 cm/sec and plaque is visible sonographically additional criter ia include ICA/CCA PSV ratio of 2.0-4.0 and ICA EDV of 40-100 cm/sec 70% ICA stenosis but less than near occlusion ICA PSV is >230 cm/sec and visible plaque and luminal n arrowing are seen at walker-scale and color doppler ultrasound (the higher the doppler parameters lie a freda the threshold of 230 cm/sec, the greater the likelihood of severe disease) additional criteria i nclude ICA/CCA PSV ratio >4 and ICA EDV >100 cm/sec
[2025-04-03 22:15] LABS: HDL Cholesterol 58 mg/dL (40-59)
[2025-04-03 22:22] LABS: Cholesterol 225 mg/dL (< 200); Triglycerides 161 mg/dL (< 150)
[2025-04-04] MEDS: ATORVASTATIN 20 MG TAB PO ONE (02:00)
[2025-04-04] MEDS: MONTELUKAST SODIUM 10 MG TAB PO ONE (02:00)
[2025-04-04] MEDS ORDERED: DEXTROSE (50%) 50ML SYRG IV PRN (02:00)
[2025-04-04 04:47] LABS: Hematocrit 37.4 % (36.0-46.0); Hemoglobin 12.7 g/dL (12.2-16.2); Mean Corpuscular Hemoglobin 29.4 pg (28.0-32.0); Mean Corpuscular Volume 86.6 fL (80.0-100.0); Nucleated Red Blood Cells % 0.3 %
[2025-04-04 04:50] LABS: Chloride 103 mmol/L (98-107); Potassium 3.6 mmol/L (3.5-5.1); Sodium 139 mmol/L (136-145)
[2025-04-04 04:51] LABS: Anion Gap 8 (5-15); Calcium 9.3 mg/dL (8.7-10.4); Carbon Dioxide 28 mmol/L (20-31)
[2025-04-04 04:56] LABS: BUN/Creatinine Ratio 16.2 (10.0-20.0); Blood Urea Nitrogen 12 mg/dL (9-23)
[2025-04-04 05:00] LABS: Glucose 230 mg/dL (74-106)
[2025-04-04] MEDS: hydrALAZINE HCL 20 MG/ML VL IV ONE (05:23)
[2025-04-04] MEDS: ACCU-CHEK COMFORT CURVE STRIP VI SCH (06:32)
[2025-04-04] MEDS: GABAPENTIN 100 MG CAP PO SCH (06:32)
[2025-04-04] MEDS: InsuLIN REG 1unit/0.01ml Soln (100units/ml) SC SCH (06:34)
[2025-04-04 09:00] VITALS: BP 138/69; PULSE 68; RESP 18; TEMP 97.3; O2SAT 97
[2025-04-04] MEDS: ENOXAPARIN SOD 40 MG/0.4 ML SYRINGE SC SCH (09:40)
[2025-04-04] MEDS: LOSARTAN POTASSIUM 25 MG TAB PO SCH (09:40)
[2025-04-04] MEDS: hydroCHLOROthiazide 25 MG TAB PO SCH (09:41)
[2025-04-04] MEDS: PANTOPRAZOLE 40 MG/10 ML VIAL INJ IV SCH (09:46)
[2025-04-04 09:54] VITALS: BP 138/69; PULSE 68; RESP 18; TEMP 97.3; O2SAT 97
[2025-04-04 12:54] VITALS: BP 156/67; PULSE 61; RESP 16; TEMP 98.1; O2SAT 98
[2025-04-04] MEDS ORDERED: ATOR20TA50 PO (13:54)
[2025-04-04] MEDS ORDERED: MONT-8 PO (13:54)
[2025-04-04] MEDS ORDERED: HYDR12.59 PO (13:54)
[2025-04-04] MEDS ORDERED: GABA-1308 PO (13:54)
[2025-04-04] MEDS ORDERED: LOSA-533 PO (13:54)
[2025-04-04] MEDS ORDERED: GLIP10TA9 PO (13:54)
[2025-04-04] MEDS ORDERED: CELE100C82 PO (13:54)
[2025-04-04] MEDS ORDERED: SITA100T7 PO (13:54)
[2025-04-04] MEDS ORDERED: SERT-206 PO (13:54)
[2025-04-04] MEDS ORDERED: PANT1INJ3 PO (13:54)
[2025-04-04 17:00] VITALS: BP 127/98; PULSE 68; RESP 18; TEMP 97.9; O2SAT 99
--- NOTE | 2025-04-04 18:23 | DVHPNRES ---
Progress Note Date Seen: Apr 04, 2025 Resident Creating Document: MARIA DEL CARMEN PERKINS RESIDENT Medical Necessity Reason Pt with a Central, PICC or Fol: No Subjective Review of Systems Patient is a Turkmen-speaking 60-year-old female with past medical history of hypertension, type 2 diabetes mellitus, hyperlipidemia, asthma and diabetic neuropathy presented to [facility] [place] ED with complaint of frontal headache for the last 3 days described as pulsatile, nonradiating, 10/10 intensity. Patient report that associated with nausea, vomiting, blurry vision, and tinnitus. She denies fever, loss of consciousness, weakness, chest pain, shortness of breath, and other symptoms. On evaluation in the ED, vitals were stable, blood pressure was 163/72. Initial labs show CBC and chemical panel within normal range. Head CT shows no acute intracranial abnormality mild generalized volume loss with chronic small-vessel ischemic change. Chest x-ray showed no acute cardiopulmonary pathology. The patient was admitted for further workup and monitoring. Patient stated that she used cane for long distances. Past medical history: HTN, hyperipidemia, Asthma, Periperal neuropathy, Diabetes Past surgical history: Shoulder ligament repair, Total knee replacement (Left) Home medication: Losartan, hydrochlorothiazide Social & Personal history: Smoke: <1 pack per day (For 6 months). ALCOHOL: none. Drugs: None Allergies: Coded Allergies: NO KNOWN ALLERGIES (Unverified , 06/05/13) Patient seen and examined at bedside. Patient is alert and oriented to time, place person and responding to all questions. Eyes: No Pain, No Vision change, No Conjunctivae inflammation, No Eyelid inflammation, No Other, No Redness ENT: No Ear pain, No Ear discharge, No Nose pain, No Nose discharge, No Nose congestion, No Mouth pain, No Mouth swelling, No Throat pain, No Throat swelling, No Other Cardiovascular: No Chest Pain, No Palpitations, No Orthopnea, No Paroxysmal No Dyspnea, No Edema, No Lt Headedness, No Other Respiratory: No Cough, No Dry, No Shortness of breath, No SOB with exertion, No Wheezing, No Hemoptysis, No Pleuritic Pain, No Sputum, No Other Gastrointestinal: No Nausea, No Vomiting, No Abdominal Pain, No Diarrhea, No Constipation, No Melena, No Hematochezia, No Other Genitourinary: No Dysuria, No Frequency, No Incontinence, No Hematuria, No Retention, No Other Musculoskeletal: No other, No neck pain, No shoulder pain, No arm pain, No back pain, No hand pain, No leg pain, No foot pain Skin: No Rash, No Lesions, No Jaundice, No Bruising, No Other Neurological: Refers frontal headache Objective vital signs Vital Sign Date Time Temp Pulse Resp B/P (MAP) Pulse Ox O2 Delivery O2 Flow Rate FiO2 04/04/25 17:00 97.9 68 18 127/98 (108) 99 97.9 medications Current Medications Medications Dose Ordered Sig/Aric Route Start Time Stop Time Status Last Admin Dose Admin Acetaminophen 650 mg Q6HP PRN PO 04/03/25 21:45 Morphine Sulfate 2 mg Q4HPRN PRN IV 04/03/25 21:45 Enoxaparin Sodium 40 mg DAILY SC 04/04/25 10:00 04/04/25 09:40 40 MG Hydrochlorothiazide 12.5 mg DAILY PO 04/04/25 10:00 04/04/25 09:41 12.5 MG Atorvastatin Calcium 20 mg HS PO 04/04/25 22:00 Montelukast Sodium 10 mg HS PO 04/04/25 22:00 Pantoprazole Sodium 40 mg DAILY IV 04/04/25 10:00 04/04/25 09:46 40 MG Gabapentin 100 mg TID PO 04/04/25 06:00 04/04/25 15:37 100 MG Diagnostic Test (Pha) 1 strip ACHS 04/04/25 07:00 04/04/25 16:30 1 STRIP Insulin Human Regular ACHS SC 04/04/25 07:00 04/04/25 16:39 3 UNITS Dextrose 50 ml UD PRN IV 04/04/25 02:00 Losartan Potassium 50 mg DAILY PO 04/05/25 10:00 Examination General Appearance: Cooperative. Well developed. Well nourished. NAD Head Exam: Normal inspection Neck Exam: Normal inspection. Non-tender. Normal alignment Pulmonary/Respiratory: Chest non-tender. Clear bilateral breath sounds, no crackles, no wheezing. Cardiovascular/Chest: Regular rate and rhythm. No murmurs. No JVD. Peripheral Pulses: 2+ Radial (R). 2+ Radial (L). 2+ Pedal (R). 2+ Pedal (L) Abdominal Exam: Normal bowel sounds. Soft. normal abdomen, no visible veins, Nontender. No hepatospenomegaly. No masses Ankle Exam: Negative ankle edema Lower extremities: Negative lower extremity edema Neuro/Mental Status: A&O x4. Coherent. Thoughts/Psych: Normal thought pattern. Appropriate mood and affect. Good judgement and insight Skin Exam: Normal inspection. Normal color. Warm. Dry laboratory and microbiology Laboratory Tests 04/04/25 04:21 Test 04/04/25 04:21 Range/Units Serum Glucose 230 H 74-106 mg/dL Labs and/or images reviewed: Labs reviewed by me, Image(s) reviewed by me Problem List/Assessment/Plan Problem List/Assessment/Plan Intractable headache, likely due to hypertensive urgency Rule out temporal giant cell arteritis - Losartan 50 mg PO daily -hydrochlorothiazide 12.5 mg IV -Acetaminophen 650 mg p.o. q.6 hours PRN -Morphine 2 mg IV q.4 PRN -Monitor blood pressure -Ordered echocardiogram to evaluate end-organ damage -Ordered ESR, pending CVA, rule out -Head CT: No acute intracranial abnormality, mild generalized volume loss with chronic small-vessel ischemic change. -Carotid Doppler: No hemodynamically significant stenosis noted in the right or left carotid systems. -CXR: No acute cardiopulmonary pathology Uncontrolled diabetes mellitus with hyperglycemia, HB A1c 8% Regular sliding scale insulin -Accu-Cheks -Consistent carbohydrate diet Mixed dyslipidemia -Atorvastatin 20 mg p.o. daily Diabetic neuropathy -Gabapentin 100 mg p.o. t.i.d. Asthma -Montelukast 10 mg p.o. daily Tobacco use -counseled the patient on the importance of complete tobacco cessation for over 12 minutes Diet: Consistent carbohydrate DVT prophylaxis: Lovenox 40 mg sc daily GI prophylaxis: Protonix 40 mg IV daily Goals of care: Full code, discussed for >16 minutes on 04/04/25 Plan discussed with patient Plan discussed with Dr. Castano Plan discussed with: Patient Date of Service: Apr 04, 2025 Billing Provider: THOMPSON CASTANO MD Common Visit Codes: [id number] INP/OBS CARE(HIGH) Secondary Visit Codes: [id number] CARE PLAN 30 MINUTES MARIA DEL CARMEN PERKINS RESIDENT Apr 04, 2025 18:23 ANJUM TERRY RESIDENT Apr 04, 2025 20:57 THOMPSON CASTANO MD Apr 08, 2025 00:12
--- NOTE | 2025-04-04 19:00 | DVHSR ---
APPROVED REPORT EXAM: Two-dimensional and M-mode echocardiogram with Doppler and color Doppler. Blood Pressure: 181/55 mmHg INDICATION Evaluate EF RISK FACTORS Height: 5'3", Weight: 168 DIMENSIONS LVDd4.4 (3.8-5.7cm)LA (2D)4.0 (1.9-4.0cm)Aortic Root2.8 (2.0-3.7cm) LVDs3.1 (2.5-4.0cm)LA (MM) (1.9-4.0cm)Aortic Cusp Exc1.5 (1.5-2.0cm) EF (%) 56.0 (55-70%)Rt. Atrium4.1 (1.9-4.0cm)Asc. Aorta cm IVSd0.8 (0.7-1.1cm)RV (D)4.2 (1.8-2.4cm) PWd1.0 (0.7-1.1cm) Mitral Valve MitralMitral Stenosis E wave0.94m/sMV Mean GR.mmHg A wave0.86m/sMV Peak GR.mmHg E/A ratio1.12D MVAcm2 DECEL [id number] 1/2 Timems Aortic Valve Aortic ValveAortic Stenosis V10.81m/Neda Mean GR.6mmHg V21.72m/Neda Peak GR.12mmHg LVOT Diameter1.7 (1.8-2.4cm)Doppler AVA1.07cm2 Pulmonic Valve V20.84m/s Other Information Technically limited study due to body habitus. Conclusion SLIGHTLY DILATED RV LV EF IS 65% AND IS NORMAL NORMAL VALVES NORMAL RV FUNCTION NO EFFUSION
[2025-04-04 20:00] VITALS: PULSE 70; RESP 18; O2SAT 99
[2025-04-04 21:00] VITALS: BP 134/90; PULSE 70; RESP 18; TEMP 98.1; O2SAT 99
[2025-04-04] MEDS: ATORVASTATIN 20 MG TAB PO SCH (21:24)
[2025-04-04] MEDS: MONTELUKAST SODIUM 10 MG TAB PO SCH (21:24)
[2025-04-05 00:53] VITALS: BP 130/87; PULSE 73; RESP 18; TEMP 98.4; O2SAT 96
[2025-04-05 05:00] VITALS: BP 153/87; PULSE 68; RESP 20; TEMP 98.6; O2SAT 95
[2025-04-05 07:39] LABS: Hematocrit 39.3 % (36.0-46.0); Hemoglobin 13.6 g/dL (12.2-16.2); Mean Corpuscular Hemoglobin 29.5 pg (28.0-32.0); Mean Corpuscular Volume 85.2 fL (80.0-100.0); Nucleated Red Blood Cells % 0.1 %
[2025-04-05 07:47] LABS: Chloride 103 mmol/L (98-107); Potassium 4.2 mmol/L (3.5-5.1); Sodium 138 mmol/L (136-145)
[2025-04-05 07:48] LABS: Anion Gap 10 (5-15); Calcium 9.7 mg/dL (8.7-10.4); Carbon Dioxide 25 mmol/L (20-31)
[2025-04-05 07:54] LABS: BUN/Creatinine Ratio 15.2 (10.0-20.0); Blood Urea Nitrogen 12 mg/dL (9-23)
[2025-04-05 07:58] LABS: Glucose 178 mg/dL (74-106)
[2025-04-05 08:00] VITALS: PULSE 74; RESP 17; O2SAT 99
[2025-04-05 09:00] VITALS: BP 126/68; PULSE 74; RESP 17; TEMP 98.1; O2SAT 96
[2025-04-05] MEDS: LOSARTAN POTASSIUM 25 MG TAB PO SCH (09:39)
[2025-04-05] MEDS ORDERED: HYDR12.59 PO (10:27)
[2025-04-05] MEDS ORDERED: LOSA-534 PO (10:27)
[2025-04-05] MEDS ORDERED: GLIP10TA9 PO (10:27)
[2025-04-05] MEDS ORDERED: SITA100T7 PO (10:27)
[2025-04-05] MEDS: ACETAMINOPHEN 325 MG TAB PO PRN (11:38)
[2025-04-05 12:40] VITALS: BP 130/85; PULSE 72; RESP 18; TEMP 98.4; O2SAT 97
--- NOTE | 2025-04-05 16:37 | DVHDSRES ---
Discharge Summary Date of Admission Resident Creating Document: MARIA DEL CARMEN PERKINS RESIDENT Apr 03, 2025 at 21:40 Date of Discharge: Apr 05, 2025 Admitting Diagnosis Frontal headache Labs/Diagnostic Data: Laboratory Results Test 04/05/25 11:53 04/05/25 07:04 04/04/25 04:21 04/03/25 21:35 POC Glucose 203 mg/dl (70-106) White Blood Count 6.2 10^3/uL (4.4-10.8) Red Blood Count 4.61 10^6/uL (4.0-5.20) Hemoglobin 13.6 g/dL (12.2-16.2) Hematocrit 39.3 % (36.0-46.0) Mean Corpuscular Volume 85.2 fL (80.0-100.0) Mean Corpuscular Hemoglobin 29.5 pg (28.0-32.0) Mean Corpuscular Hemoglobin Concent 34.7 g/dL (32.0-36.0) Red Cell Distribution Width 14.0 % (11.8-14.3) Platelet Count 209 10^3/uL (140-450) Mean Platelet Volume 7.8 fL (6.9-10.8) Neutrophils (%) (Auto) 52.2 % (37.0-80.0) Lymphocytes (%) (Auto) 38.3 % (10.0-50.0) Monocytes (%) (Auto) 6.6 % (0.0-12.0) Eosinophils (%) (Auto) 2.1 % (0.0-7.0) Basophils (%) (Auto) 0.8 % (0.0-2.0) Neutrophils # (Auto) 3.2 10 ^3/uL (1.6-8.6) Lymphocytes # (Auto) 2.4 10 ^3/uL (0.4-5.4) Monocytes # (Auto) 0.4 10 ^3/uL (0-1.3) Eosinophils # (Auto) 0.1 10 ^3/uL (0-0.8) Basophils # (Auto) 0.1 10 ^3/uL (0-0.2) Nucleated Red Blood Cells 0.1 % Sodium Level 138 mmol/L (136-145) Potassium Level 4.2 mmol/L (3.5-5.1) Chloride Level 103 mmol/L (98-107) Carbon Dioxide Level 25 mmol/L (20-31) Anion Gap 10 (5-15) Blood Urea Nitrogen 12 mg/dL (9-23) Creatinine 0.79 mg/dL (0.550-1.02) Glomerular Filtration Rate Calc 85 mL/min (>90) BUN/Creatinine Ratio 15.2 (10.0-20.0) Serum Glucose 178 mg/dL (74-106) Calcium Level 9.7 mg/dL (8.7-10.4) Erythrocyte Sedimentation Rate 22 mm/hr (0-20) Lactic Acid Level 0.8 mmol/L (0.4-2.0) Triglycerides Level 161 mg/dL (< 150) Cholesterol Level 225 mg/dL (< 200) LDL Cholesterol 151 mg/dL (< 100) HDL Cholesterol 58 mg/dL (40-59) Test 04/03/25 18:01 04/03/25 16:07 04/03/25 14:40 Prothrombin Time 10.4 sec (9.3-11.8) Prothrombin Time INR 0.98 (0.9-1.15) Activated Partial Thromboplast Time 31.9 SEC (24.5-34.5) Phosphorus Level 3.3 mg/dL (2.4-5.1) Magnesium Level 1.6 mg/dL (1.6-2.6) Total Bilirubin 0.4 mg/dL (0.2-1.0) Direct Bilirubin 0.1 mg/dL (<0.3) Aspartate Amino Transferase (AST) 19 U/L (13-40) Alanine Aminotransferase (ALT) 25 U/L (7-40) Alkaline Phosphatase 91 U/L (46-116) Troponin I High Sensitivity 4 ng/L (</=34) Total Protein 7.2 g/dL (5.7-8.2) Albumin 4.4 g/dL (3.2-4.8) Thyroid Stimulating Hormone (TSH) 0.57 uIU/mL (0.55-4.78) Hemoglobin A1c 8.0 % A1C (<5.7) Vitamin B12 Level 420 pg/mL (211-911) Vitamin D 25-Hydroxy 38.5 ng/mL (30.0-100) Other Laboratory Tests 04/05/25 07:04 Brief Hx & Hospital Course: The patient is a 60-year-old Swazi-speaking female with a past medical history of hypertension, type 2 diabetes mellitus, hyperlipidemia, asthma, and diabetic neuropathy who presented to the [facility] Emergency Department with a 3 day history of severe frontal headache. She described the headache as pulsatile, non-radiating, and rated it 10/10 in intensity. The headache was associated with nausea, vomiting, blurry vision, and tinnitus. She denied fever, loss of consciousness, weakness, chest pain, shortness of breath, or other systemic symptoms. On arrival, her vital signs were stable with a blood pressure of 163/72 mmHg. Initial laboratory workup, including CBC and basic metabolic panel, was within normal limits. A non-contrast head CT showed no acute intracranial abnormalities but did reveal mild generalized volume loss and chronic small-vessel ischemic changes. A chest X-ray showed no acute cardiopulmonary pathology. Given the severity of symptoms and concern for possible hypertensive urgency or other neurological causes, the patient was admitted for further evaluation and monitoring. During hospitalization, the patient remained alert and oriented. Neurological examination was notable only for the reported headache. Carotid Doppler ultrasound showed no hemodynamically significant stenosis. An echocardiogram was ordered to assess for end-organ damage. ESR was also ordered to evaluate for possible temporal arteritis. She was managed with Losartan 50 mg PO daily, hydrochlorothiazide 12.5 mg IV, acetaminophen 650 mg PO every 6 hours as needed, and morphine 2 mg IV as needed for pain. Blood pressure was closely monitored throughout her stay. Her diabetes was noted to be uncontrolled, with an HbA1c of 8%. She was started on regular sliding scale insulin, placed on a consistent carbohydrate diet, and monitored with Accu-Cheks. For her mixed dyslipidemia, she was started on atorvastatin 20 mg PO daily. Diabetic neuropathy was managed with gabapentin 100 mg PO three times daily. Asthma was managed with montelukast 10 mg PO daily. The patient reported using a cane for long distances. She also disclosed a history of smoking less than one pack per day for the past six months. She denied alcohol or illicit drug use. She was counseled for over 12 minutes on the importance of complete tobacco cessation. At discharge, the patient was stable and all questions were addressed. Discharge instructions were provided, and she verbalized understanding. Operations or Procedures PATIENT: MORSEDAVIDMATTIE ACCT: [id number] UNIT: [id number] : 1965 LOC: OVERFLOW ROOM / BED: [address] [place] [address] / AGE / SEX: 60 / F ADM STATUS: ADM IN SERVICE 39 ORDERING PHYSICIAN: SERA CONTRERAS RESIDENT PROCEDURE(s): CARCL - CAROTID DUPLX W COLOR DOP REASON: Eval carotids ORDER NUMBER(s): [id number], ACCESSION NUMBER(s): [id number] Carotid Duplex Clinical History: Eval carotids Comparison: None Technique: Duplex doppler evaluation of the extracranial carotid and vertebral arteries including color doppler and spectral/pulsed waveform analysis was performed. Findings: RIGHT SIDE: The peak systolic velocities are 62 cm/s in the CCA, 116 cm/s in the ICA. The ICA/CCA ratio is 1.9. The external carotid artery is patent with peak systolic velocity of 88 cm/s proximally. There is appropriate antegrade flow in the right vertebral artery. LEFT SIDE: The peak systolic velocities are 66 cm/s in the CCA, 85 cm/s in the ICA. The ICA/CCA ratio is 1.3. The external carotid artery is patent with peak systolic velocity of 67 cm/s proximally. There is appropriate antegrade flow in the left vertebral artery. IMPRESSION: 1. No hemodynamically significant stenosis noted in the right carotid system. 2. No hemodynamically significant stenosis noted in the left carotid system. Reference: Radiology 2003; 229:340-346 Normal ICA PSV is <125 cm/sec and no plaque or intimal thickening is visible sonographically additional criteria include ICA/CCA PSV ratio <2.0 and ICA EDV <40 cm/sec <50% ICA stenosis ICA PSV is <125 cm/sec and plaque or intimal thickening is visible sonographically additional criteria include ICA/CCA PSV ratio <2.0 and ICA EDV <40 cm/sec 50-69% ICA stenosis ICA PSV is 125-230 cm/sec and plaque is visible sonographically additional criteria include ICA/CCA PSV ratio of 2.0-4.0 and ICA EDV of 40-100 cm/sec 70% ICA stenosis but less than near occlusion ICA PSV is >230 cm/sec and visible plaque and luminal narrowing are seen at walker-scale and color doppler ultrasound (the higher the doppler parameters lie above the threshold of 230 cm/sec, the greater the likelihood of severe disease) additional criteria include ICA/CCA PSV ratio >4 and ICA EDV >100 cm/sec PATIENT: MATTIE MORSE ACCT: [id number] UNIT: [id number] : 1965 LOC: ER ROOM / BED: / AGE / SEX: 60 / F ADM STATUS: REG ER SERVICE 1601 ORDERING PHYSICIAN: DEWAYNE BEDOYA MD PROCEDURE(s): CXRP - CHEST PORTABLE REASON: chest pain ORDER NUMBER(s): [id number], ACCESSION NUMBER(s): [id number] AP portable chest CLINICAL INDICATION: chest pain FINDINGS: Heart size is normal. Aorta slightly tortuous. No infiltrates or effusions. No bony thoracic abnormalities. IMPRESSION: 1. No acute cardiopulmonary pathology PATIENT: MATTIE MORSE ACCT: [id number] UNIT: [id number] : 1965 LOC: ER ROOM / BED: / AGE / SEX: 60 / F ADM STATUS: REG ER SERVICE [id number] ORDERING PHYSICIAN: DEWAYNE BEDOYA MD PROCEDURE(s): HWOCT - HEAD WITHOUT CONTRAST REASON: headache, htn ORDER NUMBER(s): [id number], ACCESSION NUMBER(s): [id number] COMPUTERIZED TOMOGRAPHY OF THE HEAD WITHOUT CONTRAST REASON FOR STUDY: headache, htn COMPARISON: CT HEAD WITHOUT CONTRAST on DOS: 01/23/23, CERVICAL WITHOUT CONTRAST on DOS: 12/01/21 TECHNIQUE: Helical tomographic scans were obtained through the brain. 2-D coronal and sagittal reformatted images are provided. Radiation optimization: All CT scans at this facility use at least one of these dose optimization techniques: Automated exposure control mA and/or kV adjustment per patient size (includes targeted exams where dose is matched to clinical indication) or iterative reconstruction. RADIATION DOSE: CTDI: 53 mGy DLP: 934 mGy-cm FINDINGS: No suspicious intracranial hyperdensity to suggest acute blood. There is no mass effect nor midline shift. There is mild generalized volume loss with compensatory enlargement of the CSF spaces. There is no hydrocephalus. The suprasellar cistern is intact. There are scattered periventricular and deep white matter hypodensities that are most consistent with chronic microangiopathic changes. The calvarium is intact. The visualized mastoid air cells and paranasal sinuses are clear. IMPRESSION: No acute intracranial abnormality. Mild generalized volume loss with chronic small vessel ischemic change. PATIENT: MATTIE MORSE ACCT: [id number] UNIT: [id number] : 1965 LOC: [facility] ROOM / BED: [address] [place] [address] AGE / SEX: 60 / F ADM STATUS: ADM IN SERVICE 39 ORDERING PHYSICIAN: SERA CONTRERAS PROCEDURE(s): ECIDC - ECHO 2D MODE CARDIAC DOP REASON: Evaluate EF ORDER NUMBER(s): [id number], ACCESSION NUMBER(s): [id number] APPROVED REPORT EXAM: Two-dimensional and M-mode echocardiogram with Doppler and color Doppler. Blood Pressure: 181/55 mmHg INDICATION Evaluate EF RISK FACTORS Height: 5'3", Weight: 168 DIMENSIONS LVDd 4.4 (3.8-5.7cm) LA (2D) 4.0 (1.9-4.0cm) Aortic Root 2.8 (2.0- 3.7cm) LVDs 3.1 (2.5-4.0cm) LA (MM) (1.9-4.0cm) Aortic Cusp Exc 1.5 (1.5- 2.0cm) EF (%) 56.0 (55-70%) Rt. Atrium 4.1 (1.9-4.0cm) Asc. Aorta cm IVSd 0.8 (0.7-1.1cm) RV (D) 4.2 (1.8-2.4cm) PWd 1.0 (0.7-1.1cm) Mitral Valve Mitral Mitral Stenosis E wave 0.94m/s MV Mean GR. mmHg A wave 0.86m/s MV Peak GR. mmHg E/A ratio 1.1 2D MVA cm2 DECEL Time 257ms PRESS 1/2 Time ms Aortic Valve Aortic Valve Aortic Stenosis V1 0.81m/s AO Mean GR. 6mmHg V2 1.72m/s AO Peak GR. 12mmHg LVOT Diameter 1.7 (1.8-2.4cm) Doppler PEDRO 1.07cm2 Pulmonic Valve V2 0.84m/s Other Information Technically limited study due to body habitus. Conclusion SLIGHTLY DILATED RV LV EF IS 65% AND IS NORMAL NORMAL VALVES NORMAL RV FUNCTION NO EFFUSION SIGNED BY: MICAH WEISS MD SIGNED DATE/TIME: 04/04/25 1900 Condition at Discharge: Stable Final Diagnosis/Problems List Intractable headache, likely due to hypertensive urgency Ruled out temporal giant cell arteritis CVA, ruled out Uncontrolled diabetes mellitus with hyperglycemia, HB A1c 8% Regular sliding scale insulin Mixed dyslipidemia Diabetic neuropathy Asthma Tobacco use Discharge Disposition: Home Discharge Instruct/Medications Diet: Cardiac 2g Na,low cholest Activity: No Restrictions, As Tolerated Follow Up/Referral: fu with pcp in 1 week Medications: continue meds as prescribed: losartan 50mg po qd, hydrochlorothiazide 12.5mg po qd Scheduled Atorvastatin Calcium (Atorvastatin Calcium), 1 TAB PO DAILY, (Reported) Celecoxib (Celebrex), 200 MG PO DAILY, (Reported) Gabapentin (Gabapentin), 100 MG PO TID, (Reported) Glipizide (Glipizide), 10 MG PO DAILY Hydrochlorothiazide (Hydrochlorothiazide), 12.5 MG PO DAILY Lidocaine (Anorectal) (Lidocaine 5%), 5 % EX BID Losartan Potassium (Losartan Potassium), 50 MG PO DAILY Montelukast Sodium (Montelukast Sodium), 1 TAB PO HS, (Reported) Pantoprazole Sodium (Pantoprazole Sodium), 40 MG PO DAILY, (Reported) Sertraline Hcl (Sertraline Hcl), 25 MG PO DAILY, (Reported) Sitagliptin Phosphate (Januvia), 1 TAB PO DAILY Scheduled PRN Diazepam (Valium), 5 MG PO TIDPRN PRN Naproxen (Naprosyn Tablet), 1 TAB PO BID PRN Discontinued Medications Acetaminophen (Acetaminophen Extra Stren), 500 MG PO TID Aspirin (Aspirin), 325 MG PO DAILY, (Reported) Cyclobenzaprine Hcl (Cyclobenzaprine Hcl), 1 TAB PO QPM Cyclobenzaprine Hcl (Cyclobenzaprine Hcl), 1 TAB PO TID PRN Losartan Potassium (Losartan Potassium), 25 MG PO DAILY, (Reported) Naproxen (Naproxen), 375 MG PO TID Tramadol Hcl (Tramadol Hcl), 50 MG PO Q6HP PRN Discharge Statement: "Patient was advised to return to the ER or call 911 if any headaches, dizziness, shortness of breath, chest pain, abdominal pain, bleeding, fevers, or worsening of medical condition. Patient was counseled about treatment plan, medications, possible side effects, patientverbalized understanding. All questions were answered to the best of my ability. This discharge took greater then 30 minutes in planning, reviewing documentation, counseling the patient, and discussing with other team members." ASSESSMENT ASSESSMENT Assessment hypertensive urgency Date of Service: Apr 05, 2025 Billing Provider: THOMPSON AGUILAR MD Common Visit Codes: 02920-HSG/OBS DISCH DAY >30min MARIA DEL CARMEN PERKINS Apr 05, 2025 16:37 THOMPSON AGUILAR MD Apr 08, 2025 00:12
== END 2025-04-05 14:45 | disposition home or self-care (01) | DRG 305 ==
LOC: ER 13:27 → OVERFLOW 21:40 → WEST WING 04-04 18:07
PROVIDERS: ADMIT Internal Medicine Geriatric Medicine; ATTEND Internal Medicine Geriatric Medicine
DX: I16.0 Hypertensive urgency (principal); E11.40 Type 2 diabetes mellitus with diabetic neuropathy, unspecified; J45.909 Unspecified asthma, uncomplicated; E11.65 Type 2 diabetes mellitus with hyperglycemia; I10 Essential (primary) hypertension; E78.2 Mixed hyperlipidemia; Z96.652 Presence of left artificial knee joint; Z86.73 Personal history of transient ischemic attack (TIA), and cerebral infarction without residual deficits; Z79.82 Long term (current) use of aspirin; Z79.899 Other long term (current) drug therapy
CPT/HCPCS: 36415; 70450; 71045; 80048; 80061; 80076; 82306; 82607; 82962; 83036; 83605; 83735; 84100; 84443; 84484; 85025; 85610; 85652; 85730; 93306; 93886; 99291; G0378; J1815; J2470